=== PATIENT | female | born 1990 | race Caucasian/White ===

== ENCOUNTER → 2016-08-13 | Outpatient (CLI) | payer OTHER | LOC: HYPER 07-26 16:20 | DX: L89.154 Pressure ulcer of sacral region, stage 4 (principal); I10 Essential (primary) hypertension; E03.9 Hypothyroidism, unspecified; G40.911 Epilepsy, unspecified, intractable, with status epilepticus; F84.0 Autistic disorder; F82 Specific developmental disorder of motor function ==

== ENCOUNTER 2016-10-17 14:32 | Emergency (ER) | payer OTHER ==
[~2016-10-17] VITALS: Ht 162.6 cm; Wt 62.6 kg
[2016-10-17] MEDS ORDERED: KEPPRA 100100 MG/ML PO (14:56)
[2016-10-17] MEDS ORDERED: ONFI10 MG PO (14:58)
[2016-10-17] MEDS ORDERED: TOPAMAX50 MG PO (14:59)
[2016-10-17] MEDS ORDERED: ALLERGY ME12.5 MG/5 PO (15:01)
[2016-10-17] MEDS ORDERED: LOXAPINE5 MG PO (15:02)
[2016-10-17] MEDS ORDERED: MELATONIN3 MG PO (15:03)
[2016-10-17] MEDS ORDERED: TRAZODONE HCL100 MG PO (15:04)
[2016-10-17] MEDS ORDERED: XANAX1 MG PO (15:04)
[2016-10-17] MEDS ORDERED: DIAZEPAM 10 MG10 M2 PO (15:06)
[2016-10-17] MEDS ORDERED: ESKALITH300 MG PO (15:12)
[2016-10-17] MEDS ORDERED: MIRALAX17 GM PO (15:14)
[2016-10-17] MEDS ORDERED: SILACE50 MG/5 ML PO (15:14)
[2016-10-17] MEDS ORDERED: OXYCODONE-ACET1 EACH PO (15:17)
[2016-10-17] MEDS ORDERED: DOXYCYCLINE 10100 MG PO (15:18)
[2016-10-17] MEDS ORDERED: FENTANYL PA12 MCG/H1 TP (15:19)
[2016-10-17] MEDS ORDERED: LIORESAL 10 MG10 MG PO (15:20)
[2016-10-17] MEDS ORDERED: FLUCONAZOLE 10100 MG PO (15:21)
[2016-10-17] MEDS ORDERED: DAKIN'S473 M2 MC (15:22)
[2016-10-17] MEDS ORDERED: SF 5000 PLUS51 GM DT (15:22)
[2016-10-17] MEDS ORDERED: DEPO-PROVER150 MG/M1 IM (15:23)
[2016-10-17] MEDS ORDERED: HYDROCODONE-AC474 ML PO (15:24)
[2016-10-17 16:45] LABS: ABSOLUTE NEUTROPHILS 5.4 thou/uL (1.4-8.2); BASOPHILS 0.4 % (0.0-2.0); EOSINOPHILS 2.9 % (0.0-3.0); HEMATOCRIT 31.6 % (37.0-47.0); HEMOGLOBIN 10.4 gm/dL (12.0-15.0); LYMPHOCYTES 31.2 % (24.0-44.0); MCH 26.6 pg (26.0-34.0); MCHC 32.9 g/dL (28.0-37.0); PLATELET COUNT 287 thou/uL (150-400); POLYS 57.5 % (36.0-66.0); RBC 3.91 mil/uL (4.20-5.00); RDW 16.4 % (10.5-14.5); WBC 9.4 thou/uL (4.0-11.0)
[2016-10-17 16:46] LABS: MANUAL DIFF NO
[2016-10-17 16:52] LABS: CALCIUM 8.7 mg/dL (8.5-10.1); CREATININE 0.4 mg/dL (0.6-1.3); POTASSIUM 3.4 mmol/L (3.5-5.1)
[2016-10-17 19:56] VITALS: BP 86/93
== END 2016-10-17 20:10 | disposition home or self-care (01) ==
LOC: ER 14:32
PROVIDERS: Emergency Medicine
DX: M71.9 Bursopathy, unspecified (principal); I61.8 Other nontraumatic intracerebral hemorrhage; F84.0 Autistic disorder

== ENCOUNTER → 2016-10-17 | Outpatient (CLI) | payer OTHER ==
[~2016-10-17] MED LIST: ALLERGY ME12.5 MG/5 PO; DAKIN'S473 M2 MC; DEPO-PROVER150 MG/M1 IM; DIAZEPAM 10 MG10 M2 PO; DOXYCYCLINE 10100 MG PO; ESKALITH300 MG PO; FENTANYL PA12 MCG/H1 TP; FLUCONAZOLE 10100 MG PO; HYDROCODONE-AC474 ML PO; KEPPRA 100100 MG/ML PO; LIORESAL 10 MG10 MG PO; LOXAPINE5 MG PO; MELATONIN3 MG PO; MIRALAX17 GM PO; ONFI10 MG PO; OXYCODONE-ACET1 EACH PO; SF 5000 PLUS51 GM DT; SILACE50 MG/5 ML PO; TOPAMAX50 MG PO; TRAZODONE HCL100 MG PO; XANAX1 MG PO
== END ==
LOC: HYPER 10-16 07:09
DX: L89.154 Pressure ulcer of sacral region, stage 4 (principal); G40.911 Epilepsy, unspecified, intractable, with status epilepticus; F84.0 Autistic disorder; F82 Specific developmental disorder of motor function; I10 Essential (primary) hypertension; E03.9 Hypothyroidism, unspecified

== ENCOUNTER → 2016-11-01 | Outpatient (CLI) | payer OTHER | LOC: HYPER 07:04 | DX: L89.154 Pressure ulcer of sacral region, stage 4 (principal); G40.911 Epilepsy, unspecified, intractable, with status epilepticus; F84.0 Autistic disorder; F82 Specific developmental disorder of motor function; I10 Essential (primary) hypertension; E03.9 Hypothyroidism, unspecified ==

== ENCOUNTER → 2016-12-31 | Outpatient (CLI) | payer OTHER | LOC: HYPER 11-07 07:06 | DX: L89.154 Pressure ulcer of sacral region, stage 4 (principal); I10 Essential (primary) hypertension; E03.9 Hypothyroidism, unspecified; F84.0 Autistic disorder; F82 Specific developmental disorder of motor function; F29 Unspecified psychosis not due to a substance or known physiological condition ==

== ENCOUNTER → 2017-01-16 | Outpatient (CLI) | payer OTHER | LOC: HYPER 07:13 | DX: L89.154 Pressure ulcer of sacral region, stage 4 (principal); I10 Essential (primary) hypertension; E03.9 Hypothyroidism, unspecified; F84.0 Autistic disorder; F82 Specific developmental disorder of motor function ==

== ENCOUNTER → 2017-03-05 | Outpatient (CLI) | payer OTHER | LOC: HYPER 07:06 | DX: L89.154 Pressure ulcer of sacral region, stage 4 (principal); G40.911 Epilepsy, unspecified, intractable, with status epilepticus; F84.0 Autistic disorder; F82 Specific developmental disorder of motor function; I10 Essential (primary) hypertension; E03.9 Hypothyroidism, unspecified; F41.9 Anxiety disorder, unspecified ==

== ENCOUNTER → 2017-06-17 | Outpatient (CLI) | payer OTHER | LOC: HYPER 07:15 | DX: L89.154 Pressure ulcer of sacral region, stage 4 (principal); G40.911 Epilepsy, unspecified, intractable, with status epilepticus; F84.0 Autistic disorder; F82 Specific developmental disorder of motor function; I10 Essential (primary) hypertension; E03.9 Hypothyroidism, unspecified ==

== ENCOUNTER → 2017-09-19 | Outpatient (CLI) | payer OTHER | LOC: HYPER 07-10 09:23 | DX: L89.154 Pressure ulcer of sacral region, stage 4 (principal); G40.911 Epilepsy, unspecified, intractable, with status epilepticus; F84.0 Autistic disorder; F82 Specific developmental disorder of motor function; E03.9 Hypothyroidism, unspecified; I10 Essential (primary) hypertension ==

== ENCOUNTER → 2017-11-04 | Outpatient (CLI) | payer OTHER | LOC: HYPER 08:45 | DX: L89.154 Pressure ulcer of sacral region, stage 4 (principal); I10 Essential (primary) hypertension; E03.9 Hypothyroidism, unspecified; G40.911 Epilepsy, unspecified, intractable, with status epilepticus; F84.0 Autistic disorder; F82 Specific developmental disorder of motor function ==

== ENCOUNTER → 2018-04-29 | Outpatient (CLI) | payer OTHER | LOC: HYPER 07:01 | DX: L89.154 Pressure ulcer of sacral region, stage 4 (principal); G40.911 Epilepsy, unspecified, intractable, with status epilepticus; E03.9 Hypothyroidism, unspecified; I10 Essential (primary) hypertension; F84.0 Autistic disorder; F82 Specific developmental disorder of motor function; F41.9 Anxiety disorder, unspecified ==

== ENCOUNTER → 2018-07-17 | Outpatient (CLI) | payer OTHER | LOC: HYPER 06:54 | DX: L89.154 Pressure ulcer of sacral region, stage 4 (principal); E03.9 Hypothyroidism, unspecified; G40.911 Epilepsy, unspecified, intractable, with status epilepticus; I10 Essential (primary) hypertension; F84.0 Autistic disorder; F82 Specific developmental disorder of motor function; F41.9 Anxiety disorder, unspecified ==

== ENCOUNTER → 2018-09-09 | Outpatient (CLI) | payer OTHER | LOC: HYPER 07:21 | DX: L89.154 Pressure ulcer of sacral region, stage 4 (principal); I10 Essential (primary) hypertension; E03.9 Hypothyroidism, unspecified; G40.911 Epilepsy, unspecified, intractable, with status epilepticus; G40.909 Epilepsy, unspecified, not intractable, without status epilepticus; F84.0 Autistic disorder; F82 Specific developmental disorder of motor function; F41.9 Anxiety disorder, unspecified ==